=== PATIENT | female | born 1950 | race Caucasian/White ===

== ENCOUNTER 2022-11-15 01:52 | Observation (INO) | payer MEDICARE, BC, SELFPAY ==
[2022-11-15] VITALS (22 sets, daily range): BP systolic 111–135; BP diastolic 49–74; PULSE 79–92; RESP 16–18; TEMP 36.4–37; O2SAT 93–96; BMI 32.2
--- NOTE | 2022-11-15 02:00 | CRLHL7_ITS ---
For Patients: As a result of the Cures Act, medical imaging exams and procedure reports are released immediately into your electronic medical record. You may view this report before your referring provider. If you have questions, please contact your health care provider. INDICATION: Weakness, recent coronary artery bypass graft TECHNIQUE: Chest radiograph 1 view COMPARISON: 02/04/2015 FINDINGS: The sensitivity and specificity of the exam are moderately limited by the patient`s body habitus. Mediastinum: Previous median sternotomy and coronary artery bypass grafting (CABG) noted. New moderate cardiomegaly is noted. Lung: Both lungs are unremarkable in appearance. A small left pleural effusion is suspected. No pneumothorax is identified. Bone and Soft tissue: Unremarkable for age. IMPRESSIONS: 1. New moderate cardiomegaly is noted. 2. A small left pleural effusion is suspected. Dictated by Marlon Westbrook MD @ 11/15/2022 2:46:23 AM Dictated by: Marlon Westbrook MD @ 11/15/2022 02:46:27 (Electronically Signed)
[2022-11-15 02:18] LABS: Lactate Sepsis w/Reflex* 1.2 mmol/L (0.5-1.9)
[2022-11-15 02:21] LABS: Basophils Percent Auto 0.4 % (0.0-3.0); Eosinophils Percent Auto 2.1 % (0.0-7.0); Hematocrit 19.1 % (33.0-51.0); Immature Granulocytes Pct Auto 5.7 %; Lymphocytes Percent Auto 19.8 % (20-44); Mean Corpuscular HGB Conc 31 gm/dL (32-36); Mean Corpuscular Hemoglobin 29 pg (26-34); Mean Corpuscular Volume 93 fL (80-100); Monocytes Percent Auto 10.5 % (0.0-11.0); Neutrophils Percent Auto 61.5 % (42.0-72.0); Platelet Count* 321 K/uL (140-440); RDW Coefficient of Variation % 21.3 % (11.5-15.5); Red Blood Count 2.06 m/uL (4.00-5.20); White Blood Count* 13.59 K/uL (4.50-11.00)
[2022-11-15 02:24] LABS: Slide Review Reflex Yes
[2022-11-15 02:33] LABS: Slide Review Acceptable Review (Acceptable)
--- NOTE | 2022-11-15 02:33 | ED.GENADULT ---
HPI - General Adult General Date Seen: 11/15/22 Chief complaint: Hypotension Stated complaint: Low BP Time Seen by Provider: 11/15/22 01:53 Source: patient, family and EMS Mode of arrival: EMS Limitations: no limitations History of Present Illness HPI narrative: Patient is a 72-year-old woman who is 1 week status post 4 vessel CABG. She says her recovery was good in the hospital but since getting home couple days ago she has been feeling weaker. Today she was too weak to get up off the couch. Her blood pressure was little low at home around 90 systolic although it is improved in the ambulance and here. She has incisional pain but denies other chest pain. No difficulty breathing. No abdominal pain. Has had a couple of bowel movements which she feels have looked normal. She does note a recent abnormal Cologuard; she needs to get a colonoscopy but was told to wait 3 months after her heart surgery. She is on a baby aspirin and Plavix. No other blood loss, she was anemic at discharge with a hemoglobin of 9, given what sounds like a couple of iron infusions, has not yet started oral iron. She has been eating and drinking okay, no vomiting or diarrhea, no fevers. Related Data Home Medications Medication Instructions Recorded Confirmed allopurinol 100 mg tablet 300 mg PO ONCE 11/15/22 11/15/22 aspirin 81 mg capsule 81 mg PO DAILY 11/15/22 11/15/22 clopidogrel 75 mg tablet 75 mg PO DAILY 11/15/22 11/15/22 duloxetine 60 mg capsule,delayed 60 mg PO DAILY 11/15/22 11/15/22 release guaifenesin 600 mg tablet, 600 mg PO BID PRN 11/15/22 11/15/22 extended release 12 hr (Mucinex) insulin glargine 100 unit/mL (3 100 unit subcut QPM 11/15/22 11/15/22 mL) subcutaneous pen (Lantus Solostar U-100 Insulin) insulin lispro 100 unit/mL 45 - 55 unit subcut 3XD 11/15/22 11/15/22 subcutaneous pen (Humalog KwikPen (U-100) Insulin) levothyroxine 100 mcg tablet 125 mcg PO QAM 11/15/22 11/15/22 losartan 25 mg tablet 25 mg PO DAILY 07/25/23 07/25/23 lovastatin 40 mg tablet 40 mg PO QPM 11/15/22 11/15/22 metformin 500 mg tablet,extended 1,000 mg PO BID 11/15/22 11/15/22 release 24 hr metoprolol tartrate 25 mg tablet 25 mg PO BID 11/15/22 11/15/22 oxycodone 5 mg tablet 5 mg PO QID PRN 11/15/22 11/15/22 trazodone 50 mg tablet 50 mg PO QPM PRN insomnia 11/15/22 11/15/22 Allergies Allergy/AdvReac Type Severity Reaction Status Date / Time amlodipine AdvReac Verified 11/15/22 02:19 lisinoprol AdvReac Uncoded 11/15/22 02:19 Review of Systems Status of ROS: Reports: 10 or more systems reviewed and unremarkable except as noted in History and below [facility] Medical History (Updated 11/15/22 @ 05:47 by Uma Chen RN) ISATU (obstructive sleep apnea) ?G47.33 - Obstructive sleep apnea (adult) (pediatric) (ICD-10) Coronary artery disease involving [place] coronary artery of [place] heart ?I25.10 - Atherosclerotic heart disease of [place] coronary artery without angina pectoris (ICD-10) Moderate mitral regurgitation ?I34.0 - Nonrheumatic mitral (valve) insufficiency (ICD-10) Abnormal nuclear stress test ?R94.39 - Abnormal result of other cardiovascular function study (ICD-10) Unstable angina ?I20.0 - Unstable angina (ICD-10) Gout ?M10.9 - Gout, unspecified (ICD-10) Osteopenia ?M85.80 - Other specified disorders of bone density and structure, unspecified site (ICD-10) B12 deficiency ?E53.8 - Deficiency of other specified B group vitamins (ICD-10) Hypothyroidism ?E03.9 - Hypothyroidism, unspecified (ICD-10) CKD (chronic kidney disease) stage 3, GFR 30-59 ml/min ?N18.30 - Chronic kidney disease, stage 3 unspecified (ICD-10) Essential (primary) hypertension ?I10 - Essential (primary) hypertension (ICD-10) Type 2 diabetes mellitus ?E11.9 - Type 2 diabetes mellitus without complications (ICD-10) Hyperlipidemia ?E78.5 - Hyperlipidemia, unspecified (ICD-10) Depression ?F32.A - Depression, unspecified (ICD-10) Social History What is your current living situation?: I presently have a place to live Problems where you live: no known problems Problems where you live details: N/A In the past 12 months, utilities in danger of being shut off: no In the past 12 mos, have been you worried that your food would run out before you had money to buy more?: never true In the past 12 mos, the food you bought just didn't last and you didn't have money to buy more?: never true Highest level of school completed/degree received: some college, no degree Smoking Status: Never smoker Do you use any of these nicotine containing products: None Second hand tobacco smoke exposure: No How often do you have a drink containing alcohol: never How often do you have six or more drinks on one occasion: Never AUDIT-C Alcohol total score: 0 Non-prescribed substance use: denies use Caffeine: Yes How often does anyone, including family, friends and others, physically hurt you: never How often does anyone, including family, friends and others, insult or talk down to you: never How often does anyone, including family, friends and others, threaten you with harm: never How often does anyone, including family, friends and others, scream or curse at you: never service: No Exam Narrative: Exam Narrative: Vital signs as noted above. In general, an alert, nontoxic elderly woman. She looks pale. Head: Normocephalic, atraumatic. Eyes: Pupils are equal reactive. Extraocular movements are full. Conjunctivae are pale. ENT: Mucous membranes are moist. Neck: Supple without lymphadenopathy. Heart: Regular rate and rhythm. Midline sternal incision is healing well, no evidence of infection. She has a bandage over her drain site in the epigastrium. Lungs: Clear bilaterally. No increased work of breathing, crackles or wheezes. Abdomen: Soft and nontender. No organomegaly. Extremities: Well perfused. No edema. No calf tenderness. Pulses intact. Neurologic: Patient is alert and oriented to person and place. Speech is fluent. Face is symmetric. Moves all extremities equally. Affect: Normal. Skin: Warm and dry. Const: Vital Signs, click to edit/add: Vital Signs - 24 hr 07/25/23 02:00 11/15/22 02:07 11/15/22 02:11 Temperature 97.6 F Pulse Rate 79 Pulse Rate [Left P ulse Oximeter] 79 Respiratory Rate 16 Blood Pressure 120/53 L Blood Pressure [Le ft Upper Arm] 111/52 L Pulse Oximetry 96 96 95 Oxygen Delivery Me thod Nasal Cannula Oxygen Flow Rate 1 11/15/22 02:22 11/15/22 02:31 11/15/22 02:41 Temperature Pulse Rate 81 82 81 Pulse Rate [Left P ulse Oximeter] Respiratory Rate Blood Pressure 129/54 L 123/56 L 121/59 L Blood Pressure [Le ft Upper Arm] Pulse Oximetry 95 95 94 Oxygen Delivery Me thod Oxygen Flow Rate 11/15/22 02:51 11/15/22 03:01 11/15/22 03:16 Temperature Pulse Rate 82 83 83 Pulse Rate [Left P ulse Oximeter] Respiratory Rate Blood Pressure 121/57 L 123/56 L 131/57 L Blood Pressure [Le ft Upper Arm] Pulse Oximetry 94 93 95 Oxygen Delivery Me thod Oxygen Flow Rate 11/15/22 03:31 11/15/22 03:46 11/15/22 03:59 Temperature 97.6 F Pulse Rate 82 85 85 Pulse Rate [Left P ulse Oximeter] Respiratory Rate 16 Blood Pressure 134/53 L 128/55 L 133/64 Blood Pressure [Le ft Upper Arm] Pulse Oximetry 95 93 94 Oxygen Delivery Me thod Oxygen Flow Rate 11/15/22 04:01 11/15/22 04:17 11/15/22 04:17 Temperature 97.6 F 98.0 F Pulse Rate 85 84 84 Pulse Rate [Left P ulse Oximeter] Respiratory Rate 16 16 Blood Pressure 133/64 113/54 L 113/54 L Blood Pressure [Le ft Upper Arm] Pulse Oximetry 95 94 94 Oxygen Delivery Me thod Oxygen Flow Rate Documenting provider has reviewed patient's vital signs: yes Course Course Hospital Course: On arrival, patient was maintained on the monitor and oximetry. She had an EKG which by my review shows normal sinus rhythm, ventricular rate of 79. T-waves are fairly flat throughout, no acute ST segment changes. Blood pressure here was good on arrival at 111/52. She is not tachycardic. In no acute distress, but certainly looks pale and I suspect her hemoglobin is less than 9. Plan will be to evaluate for anemia/blood loss, acute coronary syndrome, congestive heart failure, COVID, other metabolic derangement. Her daughter says that right now she cannot manage at home as she is too weak, so I suspect she will need admission. Given her recent surgery, will likely attempt to send her back to [facility]. Hemoglobin returned at 6. Her white blood cell count is mildly elevated at 13, platelets are normal. She has a normal MCV and MCH, MCHC is 31. Fecal occult blood is positive, would suspect that she has GI blood loss. I did do a bedside ultrasound, I do not see significant pericardial effusion, there is a little bit of pericardial fluid but not enough to account for 3 g drop in hemoglobin. She does have cardiomegaly which is new on chest x-ray however. Sodium is low 128, BUN is elevated at 56 but creatinine is normal at 1.1. Blood sugar 194, LFTs unremarkable, CRP minimally elevated at 3.8 given postoperative status. TSH was 4.8, free T4 is pending. COVID negative. Troponin was 0. She does not seem to be having any overt cardiac symptoms. I did feel given her very recent postop status that transfer back to [facility] would be reasonable but they do not have any beds. I talked with Dr. Mathew, on-call for Cardiothoracic surgery. She felt that it would be reasonable to work this up as a GI bleed for the time being. Patient is on the wait list for a bed at [facility], for now will admit to [place], transfuse, further workup as indicated. Vital Signs Vital signs: Initial Vital Signs Pulse Oximetry 96 11/15/22 02:00 Vital Signs Pulse Oximetry 96 11/15/22 02:00 Temperature 98 F 11/15/22 07:00 Pulse Rate 89 11/15/22 07:00 Respiratory Rate 18 11/15/22 07:00 Blood Pressure 123/53 L 11/15/22 07:00 Pulse Oximetry 94 11/15/22 07:00 Oxygen Delivery Method Nasal Cannula 11/15/22 05:54 Oxygen Flow Rate 1 11/15/22 05:54 Medical Decision Making Lab Data Labs: Lab Results 11/15/22 11/15/22 11/15/22 Range/Units 02:00 02:01 02:10 WBC 13.59 H (4.50-11.00) K/uL RBC 2.06 L (4.00-5.20) m/uL Hgb 6.0 L* (12.0-16.0) gm/dL Hct 19.1 L (33.0-51.0) % MCV 93 (80-100) fL MCH 29 (26-34) pg MCHC 31 L (32-36) gm/dL RDW Coeff of [place] 21.3 H (11.5-15.5) % Plt Count 321 (140-440) K/uL Neut % (Auto) 61.5 (42.0-72.0) % Lymph % (Auto) 19.8 L (20-44) % [place] % (Auto) 10.5 (0.0-11.0) % Eos % (Auto) 2.1 (0.0-7.0) % Baso % (Auto) 0.4 (0.0-3.0) % Neut # (Auto) 8.40 H (1.7-7.0) K/uL Lymph # (Auto) 2.70 (0.90-2.90) K/uL [place] # (Auto) 1.40 H (0.00-0.90) K/UL Eos # (Auto) 0.30 (0.00-0.50) K/uL Baso # (Auto) 0.10 (0.00-0.30) K/uL Abs Immat Gran (auto) 0.80 H (0.00-0.30) K/uL Imm/Tot Granulo (auto) 5.7 % Diff Slide Review Acceptable Review (Acceptable) INR 1.17 H (0.91-1.10) APTT 29 (23-33) Seconds Sodium 128 L (135-149) mmol/L Potassium 4.1 (3.6-5.1) mmol/L Chloride 94 L (96-114) mmol/L Carbon Dioxide 23 (20-32) mmol/L BUN 56 H (7-30) mg/dL Creatinine 1.1 (0.5-1.5) mg/dL Estimated Creat Clear 42.82 Estimated GFR 54 ml/min Glucose 194 H (60-115) mg/dL Calcium 8.8 (8.4-10.6) mg/dL Iron (37-170) ug/dL Ferritin (11.1-264.0) ng/mL Total Bilirubin 0.6 (0.1-1.5) mg/dL Direct Bilirubin 0.0 (0.0-0.5) mg/dL AST 47 H (12-35) U/L ALT 18 (4-35) U/L Alkaline Phosphatase 108 (40-150) U/L Lactate Baseline 1.2 (0.5-1.9) mmol/L C-Reactive Protein 3.8 H (0.5-1.0) mg/dL NT-Pro-B Natriuret Pep 1120 pg/mL Total Protein 6.4 (6.0-8.3) g/dL Albumin 3.4 (3.3-5.0) g/dL TSH 4.820 H (0.270-4.200) uIU/mL Free T4 1.11 (0.70-1.85) ng/dL Stool Occult Blood (Negative) SARS-CoV-2 (PCR) Negative SARS-CoV-2 (Negative) POC Troponin I 0.00 L (0.01-0.04) ng/ml Blood Type Antibody Screen Crossmatch (AHG) 11/15/22 11/15/22 Range/Units 02:30 02:50 WBC (4.50-11.00) K/uL RBC (4.00-5.20) m/uL Hgb (12.0-16.0) gm/dL Hct (33.0-51.0) % MCV (80-100) fL MCH (26-34) pg MCHC (32-36) gm/dL RDW Coeff of [place] (11.5-15.5) % Plt Count (140-440) K/uL Neut % (Auto) (42.0-72.0) % Lymph % (Auto) (20-44) % [place] % (Auto) (0.0-11.0) % Eos % (Auto) (0.0-7.0) % Baso % (Auto) (0.0-3.0) % Neut # (Auto) (1.7-7.0) K/uL Lymph # (Auto) (0.90-2.90) K/uL [place] # (Auto) (0.00-0.90) K/UL Eos # (Auto) (0.00-0.50) K/uL Baso # (Auto) (0.00-0.30) K/uL Abs Immat Gran (auto) (0.00-0.30) K/uL Imm/Tot Granulo (auto) % Diff Slide Review (Acceptable) INR (0.91-1.10) APTT (23-33) Seconds Sodium (135-149) mmol/L Potassium (3.6-5.1) mmol/L Chloride (96-114) mmol/L Carbon Dioxide (20-32) mmol/L BUN (7-30) mg/dL Creatinine (0.5-1.5) mg/dL Estimated Creat Clear Estimated GFR ml/min Glucose (60-115) mg/dL Calcium (8.4-10.6) mg/dL Iron 83 (37-170) ug/dL Ferritin 241.0 (11.1-264.0) ng/mL Total Bilirubin (0.1-1.5) mg/dL Direct Bilirubin (0.0-0.5) mg/dL AST (12-35) U/L ALT (4-35) U/L Alkaline Phosphatase (40-150) U/L Lactate Baseline (0.5-1.9) mmol/L C-Reactive Protein (0.5-1.0) mg/dL NT-Pro-B Natriuret Pep pg/mL Total Protein (6.0-8.3) g/dL Albumin (3.3-5.0) g/dL TSH (0.270-4.200) uIU/mL Free T4 (0.70-1.85) ng/dL Stool Occult Blood Positive A (Negative) SARS-CoV-2 (PCR) (Negative) POC Troponin I (0.01-0.04) ng/ml Blood Type O Positive Antibody Screen NEGATIVE Crossmatch (AHG) See Detail Discharge Plan Discharge Clinical Impression: Anemia, Status post coronary artery bypass graft Patient Disposition: Admitted As Observation Condition: Stable
[2022-11-15 02:34] LABS: Chloride* 94 mmol/L (96-114)
[2022-11-15 02:35] LABS: Albumin* 3.4 g/dL (3.3-5.0); Potassium* 4.1 mmol/L (3.6-5.1); Sodium* 128 mmol/L (135-149)
[2022-11-15 02:37] LABS: Creatinine* 1.1 mg/dL (0.5-1.5); Est. Creatinine Clearance* 42.82; Estimated Glomerular Filt Rate 54 ml/min
[2022-11-15 02:38] LABS: Alanine Aminotransferase* 18 U/L (4-35); Alkaline Phosphatase* 108 U/L (40-150); Aspartate Amino Transferase* 47 U/L (12-35); Bilirubin Total* 0.6 mg/dL (0.1-1.5); Blood Urea Nitrogen* 56 mg/dL (7-30); Carbon Dioxide* 23 mmol/L (20-32); Glucose* 194 mg/dL (60-115); Total Protein* 6.4 g/dL (6.0-8.3)
[2022-11-15 02:39] LABS: Calcium* 8.8 mg/dL (8.4-10.6)
[2022-11-15 02:41] LABS: C Reactive Protein* 3.8 mg/dL (0.5-1.0)
[2022-11-15 02:44] LABS: Fecal Occult Blood* Positive (Negative)
[2022-11-15 02:49] LABS: NT Pro B Type NatriureticPept* 1120 pg/mL
[2022-11-15 02:51] LABS: SARS PCR* Negative SARS-CoV-2 (Negative)
[2022-11-15 03:46] LABS: Free T4 Free Thyroxine* 1.11 ng/dL (0.70-1.85)
--- NOTE | 2022-11-15 03:57 | CRLHL7_ITS ---
For Patients: As a result of the 21st Century Cures Act, medical imaging exams and procedure reports are released immediately into your electronic medical record. You may view this report before your referring provider. If you have questions, please contact your health care provider. INDICATION: Anemia status post CABG COMPARISON: None TECHNIQUE: CT examination of the abdomen and pelvis was performed following the uneventful intravenous administration of 89 cc of Isovue 370. Thin section axial images were obtained from the lung bases through the pubic symphysis. Oral contrast was not administered. Please note that all CT scans at this facility use dose modulation, iterative reconstruction, and/or weight-based dosing when appropriate to reduce radiation dose to as low as reasonably achievable. FINDINGS: LUNG BASES: Bibasilar atelectasis and small effusions. Heart mildly enlarged at the lung bases. Small pericardial effusion. Small hiatal hernia. LIVER/BILIARY SYSTEM:Hepatic steatosis. No focal mass or biliary ductal dilation.Probable layering sludge or stones within the gallbladder. There may be gallbladder wall thickening or trace pericholecystic fluid. Consider correlation with sonography. ADRENALS: Normal KIDNEYS, URETERS and BLADDER:Normal size kidneys. Calcification in the left midpole could be a stone or a vascular calcification. No obstructive uropathy. Normal appearing bladder. SPLEEN:Normal appearance. PANCREAS: Appears normal. RETROPERITONEUM and MESENTERY: There is no mass, adenopathy or aortic aneurysm. Atherosclerotic vascular calcification GASTROINTESTINAL SYSTEM: There is no evidence of diverticulitis, colitis, mechanical obstruction, or appendicitis. The small bowel as visualized appears normal.Scattered diverticulosis PELVIS: No mass, adenopathy or free fluid. OSSEOUS STRUCTURES and ABDOMINAL WALL: Degenerative changes of the visualized osseous structures.Mild body wall edema but no collection within the body wall including the muscles and subcutaneous space. OTHER: No free fluid or free air. IMPRESSION: 1. No visible cause for anemia. There is mild body wall edema but no collection within the body wall. No hematoma identified within the abdomen or pelvis. 2. Layering sludge or calculi within the gallbladder with possible wall thickening or pericholecystic fluid. Consider sonography for full formal evaluation. 3. Minimal bibasilar atelectasis and small bilateral pleural effusions. Small pericardial effusion. 4. Other nonacute appearing findings as above Please note that all CT scans at this facility use dose modulation, iterative reconstruction, and/or weight-based dosing when appropriate to reduce radiation dose to as low as reasonably achievable. Dictated by Valdo Saldaña MD @ 11/15/2022 4:56:18 AM (Electronically Signed)
[2022-11-15 04:30] LABS: Iron* 83 ug/dL (37-170)
[2022-11-15 05:22] LABS: INR 1.17 (0.91-1.10); Partial Thromboplastin Time* 29 Seconds (23-33); Prothrombin Time 15.6 Seconds
--- NOTE | 2022-11-15 05:24 | PM.IMCN1 ---
Date of Consult Consult date: 11/15/22 Primary Care Provider: Cy Jacobson MD Consult Narrative Narrative: Janina Dennis is a 72 year old female [facility] Hospitalist eHospitalist was contacted with request of consultation on Janina Dennis. 72-year-old lady who is 5 days status post CABG on aspirin and Plavix who presented to the hospital with weakness for 1 day. According to her daughter, patient today was trying to ambulate to the bathroom and then her legs gave away and she was about to fall but her family member was able to hold her. She did not lose consciousness. She denied any chest pain, shortness of breath or palpitations. Her systolic blood pressure was soft in the range of 100. No reported melena, hematochezia or hematemesis. No abdominal pain. Home Medications: see EMR Pertinent Medical History: See EMR Pertinent Social History: See EMR Exam (performed via interactive video with assistance of bedside nurse; Leonard): General: alert, cooperative, no acute distress HEENT: Pale Lungs: clear to auscultation bilaterally without crackle or wheeze CV: regular rate and rhythm without loud murmur rub or gallop Abd: denies tenderness and does not exhibit signs of pain with palpation done by bedside nurse Ext: no pitting edema noted Skin: no rashes, bruises or lesions. Neuro: alert, oriented x 3. facial muscles grossly intact, moves all extremities without any significant focal deficit appreciated by nurse Labs and imaging were reviewed. Assessment and Plan: Symptomatic anemia Acute blood loss anemia Most likely upper GI bleeding Recent CABG Patient presents with weakness likely in the setting of symptomatic anemia Presents with markedly elevated BUN to creatinine ratio Most likely upper GI bleeding Although there is no hematemesis, hematochezia or melena, will start IV PPI twice daily Spoke with ED provider, will obtain iron studies prior to transfusion Blood transfusion is starting at this time Patient will need urgent EGD We will keep her on clear liquid diet We will hold her losartan We will continue metoprolol We will hold Plavix We will continue aspirin while on PPI until clinical picture is clear Thank you [facility]. This service is available for further assistance as requested by your care team by calling [phone]. [facility] Social History Smoking Status: Unknown if ever smoked Do you use any of these nicotine containing products: None How often do you have a drink containing alcohol: never AUDIT-C Alcohol total score: 0 Non-prescribed substance use: denies use Meds Home Medications and Allergies Home Medications Medication Instructions Recorded Confirmed Type allopurinol 100 mg tablet 300 mg PO ONCE 11/15/22 11/15/22 History aspirin 81 mg capsule 81 mg PO DAILY 11/15/22 11/15/22 History clopidogrel 75 mg tablet 75 mg PO DAILY 11/15/22 11/15/22 History duloxetine 60 mg capsule,delayed 60 mg PO DAILY 11/15/22 11/15/22 History release guaifenesin 600 mg tablet, 600 mg PO BID PRN 11/15/22 11/15/22 History extended release 12 hr (Mucinex) insulin glargine 100 unit/mL (3 100 unit subcut QPM 11/15/22 11/15/22 History mL) subcutaneous pen (Lantus Solostar U-100 Insulin) insulin lispro 100 unit/mL 45 - 55 unit subcut 3XD 11/15/22 11/15/22 History subcutaneous pen (Humalog KwikPen (U-100) Insulin) levothyroxine 100 mcg tablet 125 mcg PO QAM 11/15/22 11/15/22 History losartan 25 mg tablet 25 mg PO DAILY 11/15/22 11/15/22 History lovastatin 40 mg tablet 40 mg PO QPM 11/15/22 11/15/22 History metformin 500 mg tablet,extended 1,000 mg PO BID 11/15/22 11/15/22 History release 24 hr metoprolol tartrate 25 mg tablet 25 mg PO BID 11/15/22 11/15/22 History oxycodone 5 mg tablet 5 mg PO QID PRN 11/15/22 11/15/22 History trazodone 50 mg tablet 50 mg PO QPM PRN insomnia 11/15/22 11/15/22 History Allergies Allergy/AdvReac Type Severity Reaction Status Date / Time amlodipine AdvReac Verified 11/15/22 02:19 lisinoprol AdvReac Uncoded 11/15/22 02:19 Exam Const: Vital Signs, click to edit/add: Vital Signs - 24 hr 11/15/22 02:00 11/15/22 02:07 11/15/22 02:11 Temperature 97.6 F Pulse Rate 79 Pulse Rate [Left P ulse Oximeter] 79 Respiratory Rate 16 Blood Pressure 120/53 L Blood Pressure [Le ft Upper Arm] 111/52 L Pulse Oximetry 96 96 95 Oxygen Delivery Me thod Nasal Cannula Oxygen Flow Rate 1 11/15/22 02:22 11/15/22 02:31 11/15/22 02:41 Temperature Pulse Rate 81 82 81 Pulse Rate [Left P ulse Oximeter] Respiratory Rate Blood Pressure 129/54 L 123/56 L 121/59 L Blood Pressure [Le ft Upper Arm] Pulse Oximetry 95 95 94 Oxygen Delivery Me thod Oxygen Flow Rate 11/15/22 02:51 11/15/22 03:01 11/15/22 03:16 Temperature Pulse Rate 82 83 83 Pulse Rate [Left P ulse Oximeter] Respiratory Rate Blood Pressure 121/57 L 123/56 L 131/57 L Blood Pressure [Le ft Upper Arm] Pulse Oximetry 94 93 95 Oxygen Delivery Me thod Oxygen Flow Rate 11/15/22 03:31 11/15/22 03:46 11/15/22 03:59 Temperature 97.6 F Pulse Rate 82 85 85 Pulse Rate [Left P ulse Oximeter] Respiratory Rate 16 Blood Pressure 134/53 L 128/55 L 133/64 Blood Pressure [Le ft Upper Arm] Pulse Oximetry 95 93 94 Oxygen Delivery Me thod Oxygen Flow Rate 11/15/22 04:01 11/15/22 04:17 11/15/22 04:17 Temperature 97.6 F 98.0 F Pulse Rate 85 84 84 Pulse Rate [Left P ulse Oximeter] Respiratory Rate 16 16 Blood Pressure 133/64 113/54 L 113/54 L Blood Pressure [Le ft Upper Arm] Pulse Oximetry 95 94 94 Oxygen Delivery Me thod Oxygen Flow Rate 11/15/22 04:40 11/15/22 04:44 Temperature 98.0 F 97.9 F Pulse Rate 89 Pulse Rate [Left P ulse Oximeter] 79 Respiratory Rate 16 16 Blood Pressure 129/49 L Blood Pressure [Le ft Upper Arm] 115/74 Pulse Oximetry 94 96 Oxygen Delivery Me thod Nasal Cannula Oxygen Flow Rate 1 Labs Labs: Short CBC 11/15/22 Range/Units 02:10 WBC 13.59 H (4.50-11.00) K/uL Hgb 6.0 L* (12.0-16.0) gm/dL Hct 19.1 L (33.0-51.0) % Plt Count 321 (140-440) K/uL BMP 11/15/22 02:10 Sodium 128 L Potassium 4.1 Chloride 94 L Carbon Dioxide 23 BUN 56 H Creatinine 1.1 Glucose 194 H Calcium 8.8 Liver Function 11/15/22 Range/Units 02:10 Total Bilirubin 0.6 (0.1-1.5) mg/dL Direct Bilirubin 0.0 (0.0-0.5) mg/dL AST 47 H (12-35) U/L ALT 18 (4-35) U/L Alkaline Phosphatase 108 (40-150) U/L Albumin 3.4 (3.3-5.0) g/dL
--- NOTE | 2022-11-15 05:40 | ED.NURSE ---
report to sabrina RN via phone, pt to go to room H5016. Verbal to NOT call to transport until Sabrina charge nurse calls back with verbal to arrange transport, eta for charge to call is around 0730 with okay to send pt.
[2022-11-15] MEDS: PANTOPRAZOLE SODIUM 40 MG INJ IVP (06:34)
--- NOTE | 2022-11-15 07:34 | PC.NURSE ---
Shift note: Pt arrived to the unit on bed with 1 pint of blood transfusing at 145ml/hr. Alert and oriented but complained of weakness and intermittent cough. Vital sign stable. First blood ended at 0630 without any reaction. The second blood was started at 0645 at 75ml/hr. No reaction observed. Rate increased to 155ml/hr. Pt is getting prepared to be transferred to [place].
--- NOTE | 2022-11-15 08:34 | PC.NURSE ---
PT PLEASANT AND COOPERATIVE, USING BEDPAN FEELING TOO WEAK TO GET OUT OF BED, SOME PAIN WITH COUGHING DUE TO RECENT SURGERY AND USING PILLOW TO SPLINT WHEN COUGHING, BLOOD TRANSFUSING WITHOUT DIFFICULTY, EMS HERE 810 TO TRANSPORT PATIENT TO [facility] [id number], FAMILY PRESENT AND VERY SUPPORTIVE.
[2022-11-16 14:45] LABS: Transferrin 294 mg/dL (200-360)
== END 2022-11-15 08:10 | disposition short-term general hospital (02) ==
LOC: ED 03:36 → MEDSURG 04:28
PROVIDERS: Admitting Provider Family Medicine; Emergency Provider Emergency Medicine; PCP Family Medicine; Visit Provider Family Medicine
DX: D62 Acute posthemorrhagic anemia (principal); Z95.1 Presence of aortocoronary bypass graft; I51.7 Cardiomegaly; R79.89 Other specified abnormal findings of blood chemistry; E87.1 Hypo-osmolality and hyponatremia; D72.829 Elevated white blood cell count, unspecified; I12.9 Hypertensive chronic kidney disease with stage 1 through stage 4 chronic kidney disease, or unspecified chronic kidney disease; E11.22 Type 2 diabetes mellitus with diabetic chronic kidney disease; N18.30 Chronic kidney disease, stage 3 unspecified; I25.10 Atherosclerotic heart disease of native coronary artery without angina pectoris; E78.5 Hyperlipidemia, unspecified; M85.80 Other specified disorders of bone density and structure, unspecified site; F32.A Depression, unspecified; G47.00 Insomnia, unspecified; M10.9 Gout, unspecified; I95.9 Hypotension, unspecified; R53.1 Weakness; Z79.82 Long term (current) use of aspirin; Z79.4 Long term (current) use of insulin; Z88.8 Allergy status to other drugs, medicaments and biological substances
CPT/HCPCS: 36415; 36430; 71045; 74177; 80048; 80076; 81001; 82270; 82728; 83540; 83605; 83880; 84439; 84443; 84466; 84484; 85025; 85045; 85610; 85730; 86140; 86850; 86900; 86901; 86922; 87040; 87635; 93005; 94761; 96374; 99284; 99285; C9113; G0378; P9016; Q9967

== ENCOUNTER 2022-11-15 02:01 | Outpatient (CLI) | payer MEDICARE, BC, SELFPAY | END 2022-11-15 02:02 | disposition home or self-care (01) | LOC: AMB 11-16 12:08 | PROVIDERS: PCP Family Medicine; Visit Provider Emergency Medicine | DX: R53.1 Weakness (principal); I95.9 Hypotension, unspecified | CPT/HCPCS: A0425; A0427 ==

== ENCOUNTER 2022-11-15 07:55 | Outpatient (CLI) | payer MEDICARE, BC, SELFPAY | END 2022-11-15 07:56 | disposition home or self-care (01) | LOC: AMB 11-16 12:18 | PROVIDERS: PCP Family Medicine; Visit Provider Emergency Medicine | DX: R53.1 Weakness (principal); D64.9 Anemia, unspecified | CPT/HCPCS: A0425; A0427; A0434 ==

== ENCOUNTER 2024-04-21 13:20 | Emergency (ER) | payer MEDICARE, BC, SELFPAY ==
[2024-04-21] VITALS (12 sets, daily range): BP systolic 137–147; BP diastolic 59–65; PULSE 86–109; RESP 16–22; TEMP 38; O2SAT 93–98; BMI 27.5
[2024-04-21 14:41] LABS: PCR FLU A Negative PCR FLU A (Negative); PCR FLU B Negative PCR FLU B (Negative); SARS PCR* Negative SARS-CoV-2 (Negative)
[2024-04-21] MEDS: ACETAMINOPHEN 325 MG TABLET 650 MG PO (14:57)
--- NOTE | 2024-04-21 15:30 | CRLHL7_ITS ---
For Patients: As a result of the Cures Act, medical imaging exams and procedure reports are released immediately into your electronic medical record. You may view this report before your referring provider. If you have questions, please contact your health care provider. INDICATION: Fever COMPARISON: 11/15/2022 TECHNIQUE: PA and lateral 2 view chest. FINDINGS: Lung volumes are good. No focal or diffuse opacities. No pulmonary edema. No pleural effusion. No pneumothorax. No pneumomediastinum. Heart size is normal. Atherosclerotic vascular calcifications. Abandoned epicardial pacing leads. Mediastinal surgical clips. Bones: Median sternotomy wires are in good position. No acute appearing bone finding. IMPRESSION: Postoperative chest. Lungs clear. No acute findings. Dictated by Shelby Rosenthal MD @ 04/21/2024 4:07:54 PM (Electronically Signed)
--- NOTE | 2024-04-21 15:30 | CRLHL7_ITS ---
For Patients: As a result of the Century Cures Act, medical imaging exams and procedure reports are released immediately into your electronic medical record. You may view this report before your referring provider. If you have questions, please contact your health care provider. INDICATION: RUQ pain, fever COMPARISON: None TECHNIQUE: Ultrasound abdomen limited. Real time woodson scale imaging and color Doppler analysis was performed of the abdomen. FINDINGS: Liver: The liver is normal in size measuring 17.0 cm in length. Moderate diffusely increased echogenicity consistent with steatosis. No focal liver lesions identified. Gallbladder: No stones or sludge. The gallbladder wall measures 4 millimeters in thickness. No pericholecystic fluid. No reported positive Case sign. Bile ducts: The common bile duct measures 4 mm in diameter. Pancreas: Normal where seen. Right kidney: The right kidney measures 11.3 cm in length. No hydronephrosis, calculus, or mass. Vascular: Normal caliber abdominal aorta. The IVC appears patent. The main portal vein is patent with normal flow direction. IMPRESSION: 1. Slight thickening of the gallbladder wall; otherwise, no additional sonographic findings to suggest acute cholecystitis. 2. Hepatic steatosis without focal hepatic lesions. Dictated by Alexei Dietz MD @ 04/21/2024 5:23:13 PM (Electronically Signed)
--- NOTE | 2024-04-21 15:32 | ED_ITS ---
HPI - General Adult General Chief complaint: Weakness Stated complaint: Vomiting, diarrhea, chills Time Seen by Provider: 04/21/24 15:18 Source: patient Mode of arrival: ambulatory Limitations: no limitations History of Present Illness HPI narrative: 74-year-old female presenting today with 4 days of fever, abdominal discomfort, diarrhea, nausea and vomiting. Patient has been febrile for 4 days. She denies any sick contacts. She describes the pain is in the upper portion of the abdomen in the epigastric region. Comes and goes. Not constant. She has not eaten much in the last 4 days, has tried to drink water. She denies any blood in her stools. No blood in her vomit. Patient feels tired and achy. She denies any dysuria, increased urinary frequency or urgency. She denies any skin rashes. She does have a mild headache. Related Data Home Medications ?Medication ?Instructions ?Recorded ?Confirmed allopurinol 100 mg tablet 300 mg PO ONCE 11/15/22 04/21/24 aspirin 81 mg capsule 81 mg PO DAILY 11/15/22 11/15/22 duloxetine 60 mg capsule,delayed 60 mg PO DAILY 11/15/22 04/21/24 release insulin glargine 100 unit/mL (3 100 unit subcut QPM 11/15/22 04/21/24 mL) subcutaneous pen (Lantus Solostar U-100 Insulin) insulin lispro 100 unit/mL 45 - 55 unit subcut 3XD 11/15/22 11/15/22 subcutaneous pen (Humalog KwikPen (U-100) Insulin) levothyroxine 100 mcg tablet 125 mcg PO QAM 11/15/22 04/21/24 lovastatin 40 mg tablet 40 mg PO QPM 11/15/22 04/21/24 metformin 500 mg tablet,extended 1,000 mg PO BID 11/15/22 04/21/24 release 24 hr metoprolol tartrate 25 mg tablet 25 mg PO BID 11/15/22 04/21/24 trazodone 50 mg tablet 50 mg PO QPM PRN insomnia 11/15/22 04/21/24 allopurinol 300 mg tablet 300 mg PO DAILY 04/21/24 04/21/24 pantoprazole 40 mg tablet,delayed 40 mg PO DAILY 04/21/24 04/21/24 release Allergies Allergy/AdvReac Type Severity Reaction Status Date / Time amlodipine AdvReac Verified 04/21/24 17:57 lisinoprol AdvReac Uncoded 04/21/24 17:57 Review of Systems Status of ROS: Reports: 10 or more systems reviewed and unremarkable except as noted in History and below [facility] Medical History ISATU (obstructive sleep apnea) ?G47.33 - Obstructive sleep apnea (adult) (pediatric) (ICD-10) Coronary artery disease involving [place] coronary artery of [place] heart ?I25.10 - Atherosclerotic heart disease of [place] coronary artery without angina pectoris (ICD-10) Moderate mitral regurgitation ?I34.0 - Nonrheumatic mitral (valve) insufficiency (ICD-10) Abnormal nuclear stress test ?R94.39 - Abnormal result of other cardiovascular function study (ICD-10) Unstable angina ?I20.0 - Unstable angina (ICD-10) Gout ?M10.9 - Gout, unspecified (ICD-10) Osteopenia ?M85.80 - Other specified disorders of bone density and structure, unspecified site (ICD-10) B12 deficiency ?E53.8 - Deficiency of other specified B group vitamins (ICD-10) Hypothyroidism ?E03.9 - Hypothyroidism, unspecified (ICD-10) CKD (chronic kidney disease) stage 3, GFR 30-59 ml/min ?N18.30 - Chronic kidney disease, stage 3 unspecified (ICD-10) Essential (primary) hypertension ?I10 - Essential (primary) hypertension (ICD-10) Type 2 diabetes mellitus ?E11.9 - Type 2 diabetes mellitus without complications (ICD-10) Hyperlipidemia ?E78.5 - Hyperlipidemia, unspecified (ICD-10) Depression ?F32.A - Depression, unspecified (ICD-10) Social History What is your current living situation?: I presently have a place to live Problems where you live: no known problems Problems where you live details: N/A In the past 12 months, utilities in danger of being shut off: no In past 12 months, lack of transportation kept you from medical appts, meetings, work, or getting things needed for daily living: no In the past 12 mos, have been you worried that your food would run out before you had money to buy more?: never true In the past 12 mos, the food you bought just didn't last and you didn't have money to buy more?: never true Highest level of school completed/degree received: some college, no degree Smoking Status: Never smoker Do you use any of these nicotine containing products: None Second hand tobacco smoke exposure: No How often do you have a drink containing alcohol: never How often do you have six or more drinks on one occasion: Never AUDIT-C Alcohol total score: 0 Non-prescribed substance use: denies use Caffeine: Yes How often does anyone, including family, friends and others, physically hurt you : never How often does anyone, including family, friends and others, insult or talk down to you: never How often does anyone, including family, friends and others, threaten you with harm: never How often does anyone, including family, friends and others, scream or curse at you: never service: No Exam Narrative: Exam Narrative: Well-nourished well-developed patient in no acute distress. Alert and oriented. Answers questions appropriately. Mood and affect are appropriate. Thoughts are goal oriented and rational. No tangential or magical thinking noted. Patient speaks in full sentences without needing to catch her breath. HEENT: Normocephalic atraumatic. Pupils are equally round reactive to light. Extraocular muscles are intact. Conjunctivae are moist without any icterus noted. Moist mucous membranes. Neck is soft. Cardiovascular: Heart is regular rate and rhythm S1 and S2 are present without any murmurs. Lungs: Clear to auscultation bilaterally no wheezes rhonchi or rales are appreciated. Patient takes deep breaths without any discomfort. Abdomen: Soft and nondistended with normal bowel sounds. Patient has epigastric tenderness and right upper quadrant tenderness. She has a positive Case sign. Remainder of abdominal exam is relatively unremarkable. Extremities: Bilateral lower extremities are without edema. Skin: Well perfused without any obvious rashes. Const: Vital Signs, click to edit/add: Vital Signs - 24 hr 04/21/24 13:37 04/21/24 15:30 04/21/24 17:37 Temperature 100.4 F H Pulse Rate 89 Pulse Rate [Right Pulse Oximeter] 109 H Respiratory Rate 22 Blood Pressure [Ri ght Upper Arm] 147/65 H Pulse Oximetry 97 97 96 Oxygen Delivery Me thod Room Air 04/21/24 17:45 04/21/24 18:06 04/21/24 18:15 Temperature Pulse Rate 90 99 86 Pulse Rate [Right Pulse Oximeter] Respiratory Rate Blood Pressure [Ri ght Upper Arm] Pulse Oximetry 97 96 95 Oxygen Delivery Me thod 04/21/24 18:29 Temperature Pulse Rate Pulse Rate [Right Pulse Oximeter] Respiratory Rate Blood Pressure [Ri ght Upper Arm] 140/60 H Pulse Oximetry Oxygen Delivery Sd thod Course Course ED Course: Differential diagnosis includes COVID-19, influenza, cholecystitis, infectious gastroenteritis. IV is established and patient given a L of normal saline and oral acetaminophen. CBC shows anemia with a left hemoglobin of 8.5, platelets 135. Patient does have a history of chronic anemia and she states that she is on iron therapy. Normal lactate at 1.5. Negative COVID, negative influenza, negative Monospot. Sodium is low at 129, remainder of chemistries are unremarkable. Glucose 264. LFTs are unremarkable. Normal troponin. CRP elevated at 5.6. Normal lipase. UA is unremarkable. Right upper quadrant ultrasound did not reveal any evidence of cholecystitis. Chest x-ray, read by me, did not show any acute pathology. Because of the amount of discomfort she was having intra-abdominally, we did go ahead and proceed with abdominal CT scan. This does show colitis. Vital Signs Vital signs: Initial Vital Signs Temperature 100.4 F H 04/21/24 13:37 Temperature Source Temporal Artery Scan 04/21/24 13:37 Pulse Rate 109 H 04/21/24 13:37 Pulse Rhythm Regular 04/21/24 13:37 Respiratory Rate 22 04/21/24 13:37 Blood Pressure 147/65 H 04/21/24 13:37 Blood Pressure Mean 92 04/21/24 13:37 Blood Pressure Position Sitting 04/21/24 13:37 Pulse Oximetry 97 04/21/24 13:37 Oxygen Delivery Method Room Air 04/21/24 13:37 Vital Signs Temperature 100.4 F H 04/21/24 13:37 Pulse Rate 109 H 04/21/24 13:37 Respiratory Rate 22 04/21/24 13:37 Blood Pressure 147/65 H 04/21/24 13:37 Pulse Oximetry 97 04/21/24 13:37 Oxygen Delivery Method Room Air 04/21/24 13:37 Temperature 100.4 F H 04/21/24 13:37 Pulse Rate 86 04/21/24 18:15 Respiratory Rate 22 04/21/24 13:37 Blood Pressure 140/60 H 04/21/24 18:29 Pulse Oximetry 95 04/21/24 18:15 Oxygen Delivery Method Room Air 04/21/24 13:37 Medications Administered Medications: Discontinued Medications Generic Name Dose Route Start Last Admin Trade Name Paul PRN Reason Stop Dose Admin Acetaminophen 650 mg 04/21/24 14:17 04/21/24 14:57 Acetaminophen 325 Mg Tablet PO 04/21/24 14:18 650 mg ONCE ONE Administration Sodium Chloride 1,000 mls @ 1,000 mls/hr 04/21/24 15:30 04/21/24 16:27 0.9 % Sodium Chloride 1000 Ml IV 04/21/24 16:29 1,000 mls/hr .Q1H JOSE Administration Medical Decision Making MDM Narrative Medical decision making narrative: With 74-year-old female abdominal discomfort, fevers, diarrhea. CT showing evidence of colitis. Given her systemic symptoms I do believe that the benefit of an antibiotic treatment at this time will outweigh the risk. Will treat the patient with ciprofloxacin and metronidazole. Chronic anemia. With having any new symptoms including shortness of breath or chest pain. No significant dizziness or lightheadedness. Would recommend repeat hemoglobin with primary care provider this week. Lab Data Lab results reviewed: Yes I reviewed the patient's lab results Labs: Lab Results 04/21/24 04/21/24 04/21/24 Range/Units 13:47 16:10 17:21 WBC 4.95 (4.50-11.00) K/uL RBC 3.25 L (4.00-5.20) m/uL Hgb 8.5 L (12.0-16.0) gm/dL Hct 26.7 L (33.0-51.0) % MCV 82 (80-100) fL MCH 26 (26-34) pg MCHC 32 (32-36) gm/dL RDW Coeff of [place] 15.2 (11.5-15.5) % Plt Count 135 L (140-440) K/uL Neut % (Auto) 77.2 H (42.0-72.0) % Lymph % (Auto) 10.1 L (20-44) % [place] % (Auto) 11.7 H (0.0-11.0) % Eos % (Auto) 0.0 (0.0-7.0) % Baso % (Auto) 0.2 (0.0-3.0) % Neut # (Auto) 3.80 (1.7-7.0) K/uL Lymph # (Auto) 0.50 L (0.90-2.90) K/uL [place] # (Auto) 0.60 (0.00-0.90) K/UL Eos # (Auto) 0.00 (0.00-0.50) K/uL Baso # (Auto) 0.01 (0.00-0.30) K/uL Abs Immat Gran (auto) 0.04 (0.00-0.30) K/uL Imm/Tot Granulo (auto) 0.8 % Sodium 129 L (135-149) mmol/L Potassium 3.9 (3.6-5.1) mmol/L Chloride 99 (96-114) mmol/L Carbon Dioxide 22 (20-32) mmol/L Anion Gap 8 (7-15) mEq/L BUN 20 (7-30) mg/dL Creatinine 1.1 (0.5-1.5) mg/dL Estimated Creat Clear 41.60 Estimated GFR 53 ml/min Glucose 264 H (60-115) mg/dL Lactate 1.5 (0.5-1.9) mmol/L Calcium 9.0 (8.4-10.6) mg/dL Total Bilirubin 0.7 (0.1-1.5) mg/dL Direct Bilirubin 0.4 (0.0-0.5) mg/dL AST 44 H (12-35) U/L ALT 21 (4-35) U/L Alkaline Phosphatase 88 (40-150) U/L Troponin I < 0.01 L (0.01-0.04) ng/mL C-Reactive Protein 5.6 H (0.5-1.0) mg/dL Total Protein 7.2 (6.0-8.3) g/dL Albumin 3.9 (3.3-5.0) g/dL Lipase 28 (23-300) U/L Urine Color Yellow (Yellow) Urine Appearance Clear (Clear) Urine pH 5.5 (5.0-8.5) Ur Specific [place] 1.025 (1.000-1.030) Urine Protein 2+ A (Negative) Urine Glucose (UA) Negative (Negative) Urine Ketones 1+ A (Negative) Urine Blood Negative (Negative) Urine Nitrite Negative (Negative) Urine Bilirubin Negative (Negative) Urine Urobilinogen 0.2 (0.2-1.0) Ur Leukocyte Esterase Negative (Negative) Urine RBC 0-2 (0-2) Urine WBC 2-5 (0-5) Ur Squamous Epith Cells None (None-Few) Urine Bacteria Few A (None) SARS-CoV-2 (PCR) Negative SARS-CoV-2 (Negative) Monoscreen Negative (Negative) Influenza Type A (PCR) Negative PCR FLU A (Negative) Influenza Type B (PCR) Negative PCR FLU B (Negative) Imaging Data Chest x-ray: Attestation: I have reviewed the pertinent imaging results. Radiologist's impression: TECHNIQUE: PA and lateral 2 view chest. FINDINGS: Lung volumes are good. No focal or diffuse opacities. No pulmonary edema. No pleural effusion. No pneumothorax. No pneumomediastinum. Heart size is normal. Atherosclerotic vascular calcifications. Abandoned epicardial pacing leads. Mediastinal surgical clips. Bones: Median sternotomy wires are in good position. No acute appearing bone finding. IMPRESSION: Postoperative chest. Lungs clear. No acute findings. US - abdomen: Attestation: I have reviewed the pertinent imaging results. Radiologist's impression: INDICATION: RUQ pain, fever COMPARISON: None TECHNIQUE: Ultrasound abdomen limited. Real time woodson scale imaging and color Doppler analysis was performed of the abdomen. FINDINGS: Liver: The liver is normal in size measuring 17.0 cm in length. Moderate diffusely increased echogenicity consistent with steatosis. No focal liver lesions identified. Gallbladder: No stones or sludge. The gallbladder wall measures 4 millimeters in thickness. No pericholecystic fluid. No reported positive Case sign. Bile ducts: The common bile duct measures 4 mm in diameter. Pancreas: Normal where seen. Right kidney: The right kidney measures 11.3 cm in length. No hydronephrosis, calculus, or mass. Vascular: Normal caliber abdominal aorta. The IVC appears patent. The main portal vein is patent with normal flow direction. IMPRESSION: 1. Slight thickening of the gallbladder wall; otherwise, no additional sonographic findings to suggest acute cholecystitis. 2. Hepatic steatosis without focal hepatic lesions. CT scan - abdomen: Attestation: I have reviewed the pertinent imaging results. Radiologist's impression: TECHNIQUE: CT abdomen and pelvis acquired with 81 cc of Isovue 370 IV contrast. COMPARISON: CT abdomen and pelvis 11/15/2022. FINDINGS: Lower chest: Mitral annulus calcification. Liver: Diffuse fatty infiltration. Normal contour. No suspicious mass. Gallbladder and bile ducts: Unremarkable. No stones or inflammation. No biliary dilatation. Pancreas: Unremarkable. No mass or inflammation. Spleen: Unremarkable. Normal in size. No masses. Adrenal glands: Unremarkable. No nodules. Kidneys: 3 mm nonobstructing stone within the left kidney inferior pole. No hydronephrosis bilaterally. GI tract: Few scattered colonic diverticula. There is of mild colonic wall thickening, most notably within the descending colon, with subtle pericolonic inflammation. There is retroperitoneal inflammatory stranding at the level of the renal arteries and in the right inferior paracolic gutter. Normal appendix. Vasculature: Normal caliber abdominal aorta with mild atherosclerotic calcification. Mesenteric arteries are patent. Lymph nodes: No lymphadenopathy. Peritoneum/Abdominal Wall: Unremarkable. No free air or significant free fluid. Pelvis: Unremarkable. Bones: Unremarkable for age. IMPRESSION: 1. Areas of mild mural thickening of the colon, particularly the descending colon with mild pericolonic inflammation. Findings most compatible with colitis, likely on the basis of an infectious or inflammatory process. 2. Hepatic steatosis. Discharge Plan Discharge Clinical Impression: Colitis, Fever, Anemia Patient Disposition: Home, Self-Care Condition: Stable Additional Instructions: You will be prescribed 2 antibiotics, take both as prescribed. Make sure to stay well hydrated. Okay to take Tylenol as needed for discomfort and fevers. Follow-up with your primary care provider in 48-72 hours to how you are doing and also to repeat your hemoglobin levels. Return to the emergency department if you develop worsening abdominal pain, vomiting, increasing dizziness, shortness of breath or lethargy. ciprofloxacin b.i.d. and metronidazole t.i.d. for 7 days sent to [facility]. Prescriptions: No Action allopurinol 100 mg tablet 300 mg PO ONCE levothyroxine 100 mcg tablet 125 mcg PO QAM insulin lispro [Humalog KwikPen Insulin] 100 unit/mL insulin pen 45 - 55 unit subcut 3XD duloxetine 60 mg capsule,delayed release(DR/EC) 60 mg PO DAILY insulin glargine [Lantus Solostar U-100 Insulin] 100 unit/mL (3 mL) insulin pen 100 unit subcut QPM lovastatin 40 mg tablet 40 mg PO QPM metformin 500 mg tablet extended release 24 hr 1,000 mg PO BID Patient Comments: ON HOLD POST SURGERY trazodone 50 mg tablet 50 mg PO QPM PRN (Reason: insomnia) metoprolol tartrate 25 mg tablet 25 mg PO BID aspirin 81 mg capsule 81 mg PO DAILY pantoprazole 40 mg tablet,delayed release (DR/EC) 40 mg PO DAILY allopurinol 300 mg tablet 300 mg PO DAILY Follow Up/Referrals: Cy Jacobson MD [Staff Physician] - Stand Alone Forms: [facility] Info Instructions
[2024-04-21 16:22] LABS: Basophils Absolute Auto 0.01 K/uL (0.00-0.30); Basophils Percent Auto 0.2 % (0.0-3.0); Hematocrit 26.7 % (33.0-51.0); Hemoglobin* 8.5 gm/dL (12.0-16.0); Immature Granulocytes Abs Auto 0.04 K/uL (0.00-0.30); Immature Granulocytes Pct Auto 0.8 %; Lymphocytes Percent Auto 10.1 % (20-44); Mean Corpuscular HGB Conc 32 gm/dL (32-36); Mean Corpuscular Hemoglobin 26 pg (26-34); Mean Corpuscular Volume 82 fL (80-100); Monocytes Percent Auto 11.7 % (0.0-11.0); Neutrophils Percent Auto 77.2 % (42.0-72.0); Platelet Count* 135 K/uL (140-440); RDW Coefficient of Variation % 15.2 % (11.5-15.5); Red Blood Count 3.25 m/uL (4.00-5.20); White Blood Count* 4.95 K/uL (4.50-11.00)
[2024-04-21 16:25] LABS: Mono Screen* Negative (Negative); Slide Review Reflex No
[2024-04-21 16:26] LABS: Lactate* 1.5 mmol/L (0.5-1.9)
[2024-04-21] MEDS: 0.9 % SODIUM CHLORIDE 1000 ml 1,000 ML IV (16:27)
[2024-04-21 16:45] LABS: Albumin* 3.9 g/dL (3.3-5.0); Chloride* 99 mmol/L (96-114); Sodium* 129 mmol/L (135-149)
[2024-04-21 16:46] LABS: Potassium* 3.9 mmol/L (3.6-5.1)
[2024-04-21 16:47] LABS: Creatinine* 1.1 mg/dL (0.5-1.5); Estimated Glomerular Filt Rate 53 ml/min
[2024-04-21 16:48] LABS: Alkaline Phosphatase* 88 U/L (40-150); Anion Gap 8 mEq/L (7-15); Aspartate Amino Transferase* 44 U/L (12-35); Bilirubin Direct* 0.4 mg/dL (0.0-0.5); Bilirubin Total* 0.7 mg/dL (0.1-1.5); Blood Urea Nitrogen* 20 mg/dL (7-30); Carbon Dioxide* 22 mmol/L (20-32); Glucose* 264 mg/dL (60-115); Lipase* 28 U/L (23-300); Total Protein* 7.2 g/dL (6.0-8.3)
[2024-04-21 16:49] LABS: Alanine Aminotransferase* 21 U/L (4-35)
[2024-04-21 16:51] LABS: C Reactive Protein* 5.6 mg/dL (0.5-1.0)
[2024-04-21 17:00] LABS: Troponin I* < 0.01 ng/mL (0.01-0.04)
[2024-04-21 17:40] LABS: Appearance Urine Clear (Clear); Bilirubin Urine Negative (Negative); Blood Urine Negative (Negative); Color Urine Yellow (Yellow); Glucose Urine Negative (Negative); Ketones Urine 1+ (Negative); Leukocyte Esterase Urine Negative (Negative); Nitrite Urine Negative (Negative); Protein Urine 2+ (Negative); Specific Gravity Urine 1.025 (1.000-1.030); Urobilinogen Urine 0.2 (0.2-1.0); pH Urine 5.5 (5.0-8.5)
--- NOTE | 2024-04-21 17:46 | CRLHL7_ITS ---
For Patients: As a result of the Century Cures Act, medical imaging exams and procedure reports are released immediately into your electronic medical record. You may view this report before your referring provider. If you have questions, please contact your health care provider. INDICATION: Abdominal pain, fever. TECHNIQUE: CT abdomen and pelvis acquired with 81 cc of Isovue 370 IV contrast. COMPARISON: CT abdomen and pelvis 11/15/2022. FINDINGS: Lower chest: Mitral annulus calcification. Liver: Diffuse fatty infiltration. Normal contour. No suspicious mass. Gallbladder and bile ducts: Unremarkable. No stones or inflammation. No biliary dilatation. Pancreas: Unremarkable. No mass or inflammation. Spleen: Unremarkable. Normal in size. No masses. Adrenal glands: Unremarkable. No nodules. Kidneys: 3 mm nonobstructing stone within the left kidney inferior pole. No hydronephrosis bilaterally. GI tract: Few scattered colonic diverticula. There is of mild colonic wall thickening, most notably within the descending colon, with subtle pericolonic inflammation. There is retroperitoneal inflammatory stranding at the level of the renal arteries and in the right inferior paracolic gutter. Normal appendix. Vasculature: Normal caliber abdominal aorta with mild atherosclerotic calcification. Mesenteric arteries are patent. Lymph nodes: No lymphadenopathy. Peritoneum/Abdominal Wall: Unremarkable. No free air or significant free fluid. Pelvis: Unremarkable. Bones: Unremarkable for age. IMPRESSION: 1. Areas of mild mural thickening of the colon, particularly the descending colon with mild pericolonic inflammation. Findings most compatible with colitis, likely on the basis of an infectious or inflammatory process. 2. Hepatic steatosis. Please note that all CT scans at this facility use dose modulation, iterative reconstruction, and/or weight-based dosing when appropriate to reduce radiation dose to as low as reasonably achievable. Dictated by Ramu Polo MD @ 04/21/2024 6:28:20 PM (Electronically Signed)
[2024-04-21 17:53] LABS: Bacteria Urine Few; RBC Urine 0-2 (0-2)
== END 2024-04-21 19:16 | disposition home or self-care (01) ==
PROVIDERS: Emergency Provider Family Medicine; PCP Family Medicine
DX: K52.9 Noninfective gastroenteritis and colitis, unspecified (principal); D64.9 Anemia, unspecified
CPT/HCPCS: 36415; 71046; 74177; 76705; 80048; 80076; 81001; 83605; 83690; 84484; 85025; 86140; 86308; 87086; 87631; 93005; 94761; 99284; 99285; A9270; J7030; Q9967